=== PATIENT | female | born 1995 | race Caucasian/White ===

== ENCOUNTER 2016-11-21 18:46 | Emergency (ER) | payer MEDICAID, OTHER ==
[~2016-11-21] VITALS: Ht 160 cm; Wt 74.2 kg
[~2016-11-21 18:46] MED LIST: AMOX500C25 PO; IBUP-974 PO
[2016-11-21 18:57] VITALS: BP 123/63
[2016-11-21] MEDS ORDERED: IBUPROFEN 800 MG TAB PO ONE (20:10)
[2016-11-21 20:23] VITALS: BP 116/70
== END 2016-11-21 20:23 | disposition home or self-care (01) ==
LOC: MED 18:46
DX: S63.8X1A Sprain of other part of right wrist and hand, initial encounter (principal); J45.909 Unspecified asthma, uncomplicated; Z79.899 Other long term (current) drug therapy; X58.XXXA Exposure to other specified factors, initial encounter; Y93.89 Activity, other specified; Y92.89 Other specified places as the place of occurrence of the external cause; Y99.8 Other external cause status
CPT/HCPCS: 73130; 99284; Q0092

== ENCOUNTER 2017-05-25 22:37 | Emergency (ER) | payer SELFPAY ==
[~2017-05-25] VITALS: Ht 165.1 cm; Wt 72.6 kg
[2017-05-25 22:59] VITALS: BP 125/70
--- NOTE | 2017-05-25 23:10 | NUR ---
TO LOBBY AMB, STABLE A/W BED, OCHOA NOTED
--- NOTE | 2017-05-25 23:16 | NUR ---
Pt presents to ED with x1 month of Nausea without vomiting and SYED. Pt states no change in appetite or habbits at this time. Pt states no change in mentation, no dizziness, no blurred vision VSS. ER MD aware. Continue to monitor.
--- NOTE | 2017-05-25 23:20 | NUR ---
TO ER CHAIR Lata
[2017-05-25] MEDS ORDERED: ONDANSETRON 4 MG ODT PO ONE (23:35)
[2017-05-25 23:56] LABS: BASOPHILS # (AUTO) 0.4 K/uL (0.00-0.22); EOSINOPHILS # (AUTO) 0.2 K/uL (0-0.4); EOSINOPHILS % (AUTO) 3.1 % (0.0-4.0); HEMATOCRIT 36.1 % (36-48); HEMOGLOBIN 12.1 g/dL (12.0-16.0); LYMPHOCYTES # (AUTO) 1.9 K/uL (2.5-16.5); LYMPHOCYTES % (AUTO) 25.6 % (20.5-51.1); MEAN CORPUSCULAR HEMOGLOBIN 28 pg (27-31); MEAN CORPUSCULAR HGB CONC 34 g/dL (33-37); MEAN CORPUSCULAR VOLUME 83 fL (80-94); MONOCYTES # (AUTO) 0.7 K/uL (0.8-1.0); NEUTROPHILS # (AUTO) 4.1 K/uL (1.8-7.7); NEUTROPHILS % (AUTO) 56.2 % (42.2-75.2); PLATELET COUNT (AUTO) 196 K/uL (140-450); RED BLOOD CELL COUNT(AUTO) 4.38 MIL/uL (4.20-5.40); RED CELL DISTRIBUTION WIDTH 13.2 % (11.6-13.7); WHITE BLOOD COUNT (AUTO) 7.3 K/uL (4.8-10.8)
[2017-05-26 00:08] LABS: BASOPHILS % (AUTO) 5.1 % (0.0-2.0)
[2017-05-26 00:16] LABS: ANION GAP 12.6 (8-16); CARBON DIOXIDE 26.2 mmol/L (21-32); CREATININE 0.7 mg/dL (0.6-1.3); POTASSIUM 3.8 mmol/L (3.5-5.1)
[2017-05-26 00:22] LABS: ALBUMIN 3.8 g/dL (3.4-5.0); TOTAL BILIRUBIN 0.2 mg/dL (0.0-1.0)
[2017-05-26 00:51] VITALS: BP 125/70
--- NOTE | 2017-05-26 00:51 | NUR ---
Patient discharged with v/s stable. Written and verbal after care instructions given and explained. Patient verbalized understanding. Ambulatory with steady gait. All questions addressed prior to discharge. Advised to follow up with PMD.
== END 2017-05-26 00:51 | disposition home or self-care (01) ==
LOC: MED 22:37
DX: O21.9 Vomiting of pregnancy, unspecified (principal); J45.909 Unspecified asthma, uncomplicated; Z79.899 Other long term (current) drug therapy
CPT/HCPCS: 36415; 80053; 81002; 81025; 83690; 84702; 85025; 99284; S0119